=== PATIENT | female | born 1980 ===

== ENCOUNTER 2020-07-03 14:05 | Inpatient (IN) ==
[2020-07-03 15:25] LABS: Basophils % 0.3 % (0.0-0.8); Eosinophils # 0.1 10*3/uL (0.0-0.87); Eosinophils % 0.7 % (0.00-10.9); Hematocrit 32.3 VOL% (35.7-47.0); Hemoglobin 10.2 GM/DL (12.0-16.0); Immature Granulocytes % 1.1 %; Lymphocytes # 1.7 10*3/uL (1.4-4.0); Lymphocytes % 17.7 % (21.3-54.2); Mean Corpuscular HGB Conc 31.6 GM/DL (32-36); Neutrophils % 71.2 % (38.7-73.9); Platelet Count 373 T/CUMM (130-400); Red Blood Count 3.89 MC/CUMM (3.8-5.5); Red Cell Distribution Width 16.5 % (9.3-17.3); White Blood Count 9.5 T/CUMM (4-12)
[2020-07-03] MEDS ORDERED: AMPICILLIN INJ 2,000 MG in SODIUM CHLORIDE 0.9% 100 ML IV ONE (15:27)
[2020-07-03] MEDS ORDERED: LACTATED RINGERS 1,000 ML IV SCH (15:30)
[2020-07-03] MEDS ORDERED: OXYTOCIN/LR 20 UNIT/1,000 ML BAG IV SCH (16:00)
[2020-07-03] MEDS ORDERED: ACETAMINOPHEN 500 MG TABLET PO PRN (19:52)
[2020-07-03] MEDS: MEPERIDINE 50 MG/1 ML VIAL IV PRN (22:00)
[2020-07-03] MEDS: ONDANSETRON 4 MG/2 ML VIAL IV PRN (22:00)
[2020-07-04] MEDS: AMPICILLIN INJ 1,000 MG in SODIUM CHLORIDE 0.9% 100 ML IV SCH ×2 (02:15→06:20)
[2020-07-04] MEDS: ONDANSETRON 4 MG/2 ML VIAL IV PRN (04:09)
[2020-07-04] MEDS: MEPERIDINE 50 MG/1 ML VIAL IV PRN ×2 (04:09→06:21)
[2020-07-04] MEDS ORDERED: miSOPROStoL 200 MCG TABLET ONE (07:42)
[2020-07-04] MEDS ORDERED: METHYLERGONOVINE 0.2 MG/1 ML AMP ONE (07:43)
[2020-07-04] MEDS ORDERED: CARBOPROST TROMETHAMINE 250 MCG/ML AMP IM ONE (07:43)
[2020-07-04] MEDS ORDERED: OXYTOCIN/LR 0 UNIT/0 ML BAG IV ONE (07:43)
[2020-07-04] MEDS ORDERED: TRANEXAMIC ACID 1,000 MG/10 ML VIAL ONE (07:43)
[2020-07-04 09:33] LABS: Cord Venous Blood HCO3 17.5 MMOL/L
[2020-07-04] MEDS: IBUPROFEN 800 MG TABLET PO PRN ×2 (12:09→19:55)
[2020-07-04] MEDS: ACETAMINOPHEN/CODEINE 300-30 MG TABLET PO PRN ×2 (17:40→23:22)
[2020-07-04] MEDS ORDERED: BENZOCAINE 20%/MENTHOL 0.5% SPRAY 56 GM CAN TOP PRN (17:42)
[2020-07-04] MEDS: DOCUSATE SODIUM 100 MG CAPSULE PO SCH ×2 (19:56→22:42)
[2020-07-05] MEDS: IBUPROFEN 800 MG TABLET PO PRN ×2 (02:13→20:13)
[2020-07-05 06:09] LABS: Basophils % 0.2 % (0.0-0.8); Eosinophils # 0.1 10*3/uL (0.0-0.87); Eosinophils % 0.6 % (0.00-10.9); Hematocrit 24.6 VOL% (35.7-47.0); Hemoglobin 7.9 GM/DL (12.0-16.0); Immature Granulocytes % 0.8 %; Immature Granulocytes Absolute 0.15 #; Lymphocytes # 2.3 10*3/uL (1.4-4.0); Mean Corpuscular HGB Conc 32.1 GM/DL (32-36); Mean Corpuscular Volume 83.1 FL (87-102); Mean Platelet Volume 9.4 FL (9.6-12.0); Monocytes % 6.3 % (1.7-12.7); Neutrophils % 79.1 % (38.7-73.9); Platelet Count 290 T/CUMM (130-400); Red Blood Count 2.96 MC/CUMM (3.8-5.5); Red Cell Distribution Width 16.4 % (9.3-17.3)
[2020-07-05] MEDS ORDERED: INFLUENZA VIRUS VACCINE 0.5 ML SYRINGE IM ONE (09:00)
[2020-07-05] MEDS ORDERED: FERROUS SULFATE 325 MG TABLET PO SCH (09:00)
[2020-07-05] MEDS: DOCUSATE SODIUM 100 MG CAPSULE PO SCH ×2 (09:27→20:13)
[2020-07-05] MEDS: FERROUS SULFATE 325 MG TABLET PO SCH ×3 (09:27→20:13)
[2020-07-05] MEDS ORDERED: SODIUM CHLORIDE 0.9% 1,000 ML IV PRN (11:36)
[2020-07-05] MEDS: ACETAMINOPHEN/CODEINE 300-30 MG TABLET PO PRN (13:17)
[2020-07-06 05:28] LABS: Basophils % 0.3 % (0.0-0.8); Eosinophils # 0.2 10*3/uL (0.0-0.87); Eosinophils % 1.1 % (0.00-10.9); Hematocrit 34.7 VOL% (35.7-47.0); Immature Granulocytes % 2.1 %; Immature Granulocytes Absolute 0.32 #; Lymphocytes # 2.1 10*3/uL (1.4-4.0); Lymphocytes % 13.7 % (21.3-54.2); Mean Corpuscular HGB Conc 31.1 GM/DL (32-36); Mean Platelet Volume 8.9 FL (9.6-12.0); Monocytes % 6.2 % (1.7-12.7); NRBC # 0.04 10*3/uL; Neutrophils % 76.6 % (38.7-73.9); Platelet Count 347 T/CUMM (130-400); Red Cell Distribution Width 16.4 % (9.3-17.3)
[2020-07-06 05:32] LABS: Red Blood Count 4.13 MC/CUMM (3.8-5.5)
[2020-07-06 05:33] LABS: Hemoglobin 10.8 GM/DL (12.0-16.0)
[2020-07-06] MEDS: IBUPROFEN 800 MG TABLET PO PRN ×2 (06:11→19:28)
[2020-07-06] MEDS: ACETAMINOPHEN/CODEINE 300-30 MG TABLET PO PRN (06:11)
[2020-07-06] MEDS: DOCUSATE SODIUM 100 MG CAPSULE PO SCH ×3 (08:45→21:43)
[2020-07-06] MEDS: FERROUS SULFATE 325 MG TABLET PO SCH ×4 (08:46→21:43)
[2020-07-07] MEDS: DOCUSATE SODIUM 100 MG CAPSULE PO SCH (10:26)
[2020-07-07] MEDS: FERROUS SULFATE 325 MG TABLET PO SCH (10:26)
[2020-07-07 10:59] VITALS: BP 151/96
== END 2020-07-07 10:45 | disposition home or self-care (01) | DRG 807 ==
LOC: N.LDOUT 14:05 → N.LD 14:06 → N.OB 07-04 11:37
PROVIDERS: ADMIT Obstetrics & Gynecology; ATTEND Obstetrics & Gynecology